=== PATIENT | male | born 1950 | race Caucasian/White ===

== ENCOUNTER 2018-08-09 09:49 | Observation (INO) ==
[2018-08-09] MEDS ORDERED: Metoprolol Tartrate 25 MG Tablet PO ONE (10:26)
[2018-08-09] MEDS ORDERED: Chlorhexidine Gluconate 2% 1 Pack (2 Cloths) TOPICAL ONE ×2 (10:26→10:30)
[2018-08-09] MEDS ORDERED: Sodium Chloride 0.9% 2 ML Flush PRN IV.FLUSH (10:34)
--- NOTE | 2018-08-09 10:38 | XR ---
EXAM DATE: 08/09/2018 10:36 AM EST AGE/SEX: 68 years / Male INDICATIONS: Evaluate for pneumonia, pneumothorax, or communicable disease. Pre-op Lumbar spine sx. CLINICAL DATA: This is the patient's initial encounter. Patient reports that signs and symptoms have been present for 1 day and indicates a pain score of 0/10. MEDICAL/SURGICAL HISTORY: Myocardial infarction. None. COMPARISON: No prior exams available for comparison. FINDINGS: A single AP view of the chest demonstrates the lungs to be symmetrically aerated without evidence of mass, infiltrate or effusion. The cardiomediastinal contours are unremarkable. Osseous structures a re intact. CONCLUSION: Negative for an acute process Electronically signed by: Kiran Stuart MD Board Certified Radiologist 08/09/2018 10:37 AM EST
[2018-08-09] MEDS ORDERED: Bupivacaine PF 0.5% Inj 30 ML Vial ONE (10:41)
[2018-08-09] MEDS ORDERED: Thrombin Topical Soln 5,000 UNIT Vial TOPICAL ONE (10:41)
[2018-08-09] MEDS ORDERED: Gelatin Size 100 Topical Foam ONE (10:41)
[2018-08-09] MEDS ORDERED: Lidocaine 1% Inj 50 ML Vial ONE (10:42)
[2018-08-09] MEDS ORDERED: Vancomycin Inj 1,000 MG in Sodium Chlor 0.9% Inj 250 ML IV.SIG SCH (11:00)
[2018-08-09] MEDS ORDERED: Sodium Chlor 0.9% Inj 500 ML IV.SIG ONE (11:00)
[2018-08-09] MEDS: Sod Chloride 0.9% Inj 1,000 ML IV.SIG SCH (11:15)
[2018-08-09 11:22] LABS: Baso % (Auto) 0.8 % (0.0-2.0); Eos # (Auto) 0.1 th/mm3 (0.0-0.4); Eos % (Auto) 1.6 % (0.0-4.0); Hematocrit 36.7 % (39.0-51.0); Hemoglobin 12.7 gm/dL (13.0-17.0); Lymph # (Auto) 1.4 th/mm3 (1.0-4.8); Lymph % (Auto) 23.9 % (9.0-44.0); Mean Corpuscular HGB Conc 34.7 % (32.0-36.0); Mean Corpuscular Hemoglobin 34.2 pg (27.0-34.0); Mean Corpuscular Volume 98.5 fL (80.0-100.0); Mean Platelet Volume 8.2 fL (7.0-11.0); Mono # (Auto) 0.8 th/mm3 (0.0-0.9); Mono % (Auto) 12.8 % (0.0-8.0); Neut # (Auto) 3.6 th/mm3 (1.8-7.7); Neut % (Auto) 60.9 % (16.0-70.0); Platelet Count 255 th/mm3 (150-450); Red Blood Count 3.72 mil/mm3 (4.50-5.90); Red Cell Distribution Width 14.2 % (11.6-17.2); White Blood Count 5.9 th/mm3 (4.0-11.0)
[2018-08-09 11:30] LABS: Activated Partial Thrombo Time 25.9 sec (23.4-31.7); INR 0.9 Ratio; Prothrombin Time 9.5 sec (9.8-11.6)
[2018-08-09 11:31] LABS: Bacteria,Urine Rare /hpf; Bilirubin,Urine Negative (Negative); Clarity,Urine Clear (Clear); Color,Urine Yellow (Yellw/Straw); Glucose,Urine (UA) Negative (Negative); Leukocyte Esterase,Urine Negative (Negative); Nitrite,Urine Negative (Negative); Specific Gravity,Urine 1.012 (1.002-1.035)
[2018-08-09 11:38] LABS: Calcium 9.1 mg/dL (8.5-10.1); Potassium 4.5 meq/L (3.5-5.1)
[2018-08-09] MEDS ORDERED: Bupivacaine/Epinephrine PF Inj 0.5% 30 ML Vial ONE (11:46)
--- NOTE | 2018-08-09 11:52 | ECG ---
Date Performed: 08/09/2018 Time Performed: 10:40:15 PTAGE: 68 years EKG: Sinus rhythm SEPTAL MYOCARDIAL INFARCTION , OF INDETERMINATE AGE INFERIOR MYOCARDIAL INFARCTION , OF INDETERMINAT E AGE ABNORMAL ECG NO PREVIOUS TRACING DOCTOR: Darryl Culver Interpretating Date/Time 08/09/2018 11:50:04
[2018-08-09] MEDS ORDERED: *HYDROmorphone PF Inj 1 MG/ML Ampul PERIprocedural Use ONLY ONE ×3 (13:25→14:12)
[2018-08-09] MEDS ORDERED: Bisacodyl 10 MG Supp RECTAL PRN (13:29)
[2018-08-09] MEDS ORDERED: HYDROmorphone PF Inj 1 MG/ML Ampul IV.PUSH PRN (13:32)
[2018-08-09] MEDS ORDERED: Naloxone Inj 0.4 MG/ML Vial IV.PUSH PRN (13:32)
[2018-08-09] MEDS ORDERED: Acetaminophen 325 MG Tablet PO PRN (13:32)
--- NOTE | 2018-08-09 15:06 | P.OP ---
- Preoperative Diagnosis (1) Lumbar arthropathy - Postoperative Diagnosis (1) Lumbar arthropathy Date of procedure: 08/09/18 Procedure: L1 spinous process resection (and T12 as well) Anesthesia: GETA Surgeon: Carlos Purvis MD Operation and Findings: INDICATIONS: 68yoM s/p lumbosacral fusion 1 year ago. When he healed, he noticed a very prominent spinous process at L1 which was visibly obvious, uncomfortable, and causing rubbing on his clothes and chairs with redness. DESCRIPTION OF OPERATION: Patient was brought to Main OR and the procedure was done under general. He was placed in the prone position on the OSI bed, all pressure points padded. Mid lumbar spine was prepped and draped in the usual sterile fashion. Local anesthetic was infiltrated into the rostral portion of his incision and further rostral. This was incised sharply down to spinous process of L1. Subperiosteal dissetion was performed at L1 and then T12 around both spinous processes. These were removed with [place] rongeurs and the base of both were smoothed with the drill and waxed. Fluoroscopy was used to confirm location. Wound copiously irrigated with genamicin irrigation, then closed in layers with interrupted 2-0 Vicryl for fascia and inverted 3-0 Vicryl for subcutaneous, followed by monocril and dermabond for skin. Sterile dressings applied. All sponge and needle counts correct. Patient returned supine and taken to recovery in stable condition. Dr. Purvis present and scrubbed for entire procedure. No periprocedural complications.
[2018-08-09] MEDS: Senna/Docusate Sodium 8.6/50 MG Tablet PO SCH (20:36)
[2018-08-09] MEDS: Sodium Chloride 0.9% 2 ML Flush BID IV.FLUSH SCH (20:36)
--- NOTE | 2018-08-10 09:16 | P.PNNS ---
Subjective Interval history: Doing well, vicodin not working for back pain-- switching to po dilaudid some hematoma developing at back site, but no sign of infection or drainage Physical Exam Vital signs: Vital Signs 08/09/18 10:43 08/09/18 13:03 08/09/18 13:15 Temperature 97.9 F 98.0 F Pulse Rate 69 90 76 Respiratory Rate 20 16 16 Blood Pressure 158/73 H 137/64 134/64 Pulse Oximetry 99 100 98 08/09/18 13:30 08/09/18 13:45 08/09/18 14:00 Temperature Pulse Rate 76 80 78 Respiratory Rate 16 16 16 Blood Pressure 116/68 144/74 H 126/70 Pulse Oximetry 99 97 96 08/09/18 14:15 08/09/18 14:30 08/09/18 16:00 Temperature 97.4 F L Pulse Rate 72 78 88 Respiratory Rate 16 16 19 Blood Pressure 119/66 126/68 148/70 H Pulse Oximetry 98 97 94 L 08/09/18 19:14 08/09/18 23:31 08/10/18 03:36 Temperature 97.3 F L 97.5 F L 97.3 F L Pulse Rate 85 72 74 Respiratory Rate 18 18 17 Blood Pressure 135/63 121/60 119/57 L Pulse Oximetry 96 97 95 Intake & Output 08/09/18 08/10/18 08/10/18 18:59 06:59 18:59 Intake Total 1050 / 1050 360 / 360 Output Total 10 / 10 Balance 1040 / 1040 360 / 360 Weight 67.7 kg 67.7 kg Intake: IV 250 / 250 Vancomycin Inj 1,000 MG In NS 250 / 250 Inj 250 ML @ 250 mls/hr IV.SIG [employer] [facility] Rx#:[id number] Oral 360 / 360 Anesthesia Amount 800 / 800 Output: Estimated Blood Loss Other: # Voids 3 Date of Last Bowel Movement 08/09/18 # Bowel Movements 0 Weight On Admission 67.7 kg Narrative: Hematoma above incision NO drainage, c/d/i Full strength UE/LE Assessment and Plan - Plan pod#1 T12/L1 spinous process resection d/c home today on po dilaudid f/u on 08/22/17 for wound check ambulate as much as possible.
[2018-08-10] MEDS: Senna/Docusate Sodium 8.6/50 MG Tablet PO SCH (09:56)
[2018-08-10] MEDS: Sodium Chloride 0.9% 2 ML Flush BID IV.FLUSH SCH (09:56)
[2018-08-10] MEDS: Sod Chloride 0.9% Inj 1,000 ML IV.SIG SCH (09:56)
== END 2018-08-10 10:43 | disposition home or self-care (01) ==
LOC: HSDC 09:49 → HSDI 09:49 → N06 15:16
PROVIDERS: ADMIT Neurological Surgery; ATTEND Neurological Surgery